=== PATIENT | female | born 1990 | race African-American/Black ===

== ENCOUNTER 2021-11-09 15:17 | Emergency (ER) | payer MEDICAID ==
[~2021-11-09] VITALS: Ht 165.1 cm; Wt 91.0 kg
[2021-11-09 15:25] VITALS: BP 124/77
[2021-11-09] MEDS ORDERED: ACETAMINOPHEN 325MG TABLET PO ONE ×2 (19:00→21:00)
[2021-11-09] MEDS ORDERED: IBUP-2028 MT (20:48)
== END 2021-11-09 20:56 | disposition home or self-care (01) ==
LOC: ER 15:17
DX: B34.9 Viral infection, unspecified (principal); U07.1 COVID-19
CPT/HCPCS: 71045; 81025; 87426; 99284; C9803